=== PATIENT | male | born 1975 | race Caucasian/White ===

== ENCOUNTER 2017-07-16 15:33 | Emergency (ER) | payer SELFPAY ==
[2017-07-16 15:37] VITALS: BP 139/73; BMI 35.9
--- NOTE | 2017-07-16 16:02 | DR.EXTPAIN ---
HPI - Time seen Time seen: 15:55 - PCP Primary Care Physician: DEEPAK - Complaint/Symptoms Chief Complaint Doctor Comments: As noted in nurses notes below. He had faalen off a height of about 6 foot on a ladder. He states that his left knee gives out when he places weight on it. Chief Complaint:: PT C/O LLE PAIN. PT STATES HE FELL OFF OF A LADDER WHILE WORKING. PT STATES HE IS UNABLE TO PUT WEIGHT ONTO HIS LT LOWER EXT. - Nurses notes reviewed Nurses Notes Review: Yes - Source History Provided: Patient - Mode of arrival Mode of Arrival: Wheelchair - Timing Onset of Chief Complaint: 07/16/17 PMH - PMH Past Medical History: No Past Medical History Comment: LOW TESTOTERONE Past Surgical History: Yes Surgical History: Ortho Surgery Past Surgical History Comment: KNEE AND SHOULDER - Family History History of Family Medical Conditions: No - Social History Type of Tobacco Use: VAPOR Does any household member use tobacco: No Alcohol Use: None Do you use any recreational Drugs:: No Lives With: Family Lives Where: Home - infectious screening In the last 2 months have you had wt loss of >10#?: NO Have you had fever, night sweats or hemotysis?: No Have you traveled outside the country in the last 6 months?: No Isolation: Standard ROS - Review of Systems Constitutional: No Symptoms Reported Eyes: No Symptoms Reported ENTM: No Symptoms Reported Respiratoy: No Symptoms Reported Cardiovascular: No Symptoms Reported Gastrointestinal/Abdominal: No Symptoms Reported Genitourinary: No Symptoms Reported Neurological: No Symptoms Reported Musculoskeletal: Knee (pain. inability to bear weight) Integumentary: No Symptoms Reported Hematologic/Lymphatic: No Symptoms Reported Endocrine: No Symptoms Reported Psychiatric: No Symptoms Reported All Other Systems: Reviewed and Negative PE - Vital Signs Vitals: Temperature 97.0 F Pulse Rate 90 Respiratory Rate 20 Blood Pressure 139/73 O2 Sat by Pulse Oximetry 92 - General Limitations: No Limitations General Appearance: Alert, In No Apparent Distress - Head Head Exam: Normal Inspection - Eyes Eye exam: Normal Appearance - ENT ENT Exam: Normal Exam - Neck Neck Exam: Normal Inspection - Chest Chest Inspection: Normal Inspection - Respiratory Respiratory Exam: Normal Lung Sounds Bilat - Cardiovascular Cardiovascular Exam: Regular Rate, Normal Rhythm, Normal Heart Sounds, +S1, +S2 - Abdominal Exam Abdominal Exam: Normal Inspection, Normal Bowel Sounds, Soft - Extremities Extremities Exam: Normal Inspection - Lower Extremities Hip/Pelvis Exam: Normal Inspection. negative: Tenderness, Swelling, Abrasion, Laceration, Ecchymosis, Deformity, Crepitus, Dislocation Knee Exam: Normal Inspection, Knee Extension Intact. negative: Tenderness, Swelling, Abrasion, Laceration, Ecchymosis, Deformity, Crepitus, Dislocation, Erythema, Effusion, Anterior Drawer Sign, Posterior Draw Sign, Pain with Valgus , Laxity with Valgus, Pain with Varus Lower Leg Exam: Normal Inspection - Back Back Exam: Normal Inspection - Neurological Neurological Exam: Alert, Oriented X3, CN II-XII Intact - Psychiatric Psychiatric Exam: Normal Affect, Normal Mood - Skin Skin Exam: Warm, Dry, Intact, Normal Color Course - Reevaluation 1st: Unchanged 2nd: Unchanged - Education/Counseling Education/Counseling: Patient, Family, Education, Counseling Educated On: Treatment, Diagnosis, Prognosis, Needs for Follow Up ROR - XRAY XRAY Interpreted by: Both (Left knee and Lt. tib/fib.: no fracture or dislocation noted.) - Diagnosis Discharge Problem: Instability of left knee joint, Knee pain, left - Discharge Plan Disposition: 01 HOME, SELF-CARE Condition: Stable - Follow ups/Referrals Follow ups/Referrals: ROSIE SOTELO [Primary Care Provider] - 3 days - Instructions Instructions: Knee Pain, Adult, [id number]
--- NOTE | 2017-07-16 16:45 | RAD ---
HISTORY: Left knee pain status post fall. Study: Four views of the left knee. Comparison: None. Findings: No evidence for acute cortical disruption or dislocation. Mild patellofemoral spurring. Bipartite la teral patella. No significant effusion. IMPRESSION: No acute osseous abnormality. Reported By:
--- NOTE | 2017-07-16 16:47 | RAD ---
HISTORY: Fell off a ladder. Left knee pain. Study: Left tibia and fibula, two views Comparison: None. Findings: AP and lateral radiographs of the lower extremity demonstrate no evidence for acute cortical disrupti on. No significant soft tissue abnormality can be identified. IMPRESSION: 1. Negative exam. Reported By:
[2017-07-16] MEDS ORDERED: MORPHINE SULFATE INJ 2 MG INJ IM ONE (17:02)
[2017-07-16] MEDS ORDERED: MORPHINE SULFATE INJ 2 MG INJ ONE (17:10)
== END 2017-07-16 17:25 | disposition home or self-care (01) ==
LOC: ER 15:53
DX: M25.362 Other instability, left knee (principal); M25.562 Pain in left knee; W11.XXXA Fall on and from ladder, initial encounter; Y92.69 Other specified industrial and construction area as the place of occurrence of the external cause
CPT/HCPCS: 73564; 73590; 96372; 99282; J2270